=== PATIENT | female | born 1950 | race Caucasian/White ===

== ENCOUNTER 2019-04-24 05:54 | Day surgery (SDC) | payer MEDICARE, OTHER ==
--- NOTE | 2019-04-23 14:07 | PREOPHP ---
DATE OF ADMISSION: 04/24/2019 HISTORY OF PRESENT ILLNESS: This 69-year-old patient is admitted for elective cataract surgery of th e right eye. The patient has had decreased vision in both eyes for the past 6 months without prior h istory of eye disease or injury other than a dry eye condition. The patient's systemic history is po sitive for systemic hypertension, neuropathy and depression. CURRENT MEDICATIONS: Includes: 1. Tramadol. 2. Lexapro. 3. Amlodipine. 4. Gabapentin. ALLERGIES: ALLERGIC TO ASPIRIN. PHYSICAL EXAMINATION: Visual acuity with best correction is 20/40 in both eyes. Slit lamp examinati on reveals nuclear sclerotic cataracts in both eyes. Applanation tonometry is 19 mmHg. Examination of the retina is within normal limits. DIAGNOSIS: Nuclear sclerotic cataract, right eye. PLAN: Cataract extraction with lens implant, right eye. The risks and alternatives to the surgery h ave been discussed with the patient as well as the hope for improvement of visual acuity leading to g reater ability to perform activities of daily living. The patient understands this and agrees to pro ceed with surgery. Dictated By: CAMRON BASILIO/CRISSY Conf#: [id number] DID#: [id number]
[~2019-04-24] VITALS: Ht 157.5 cm; Wt 85.9 kg
[2019-04-24] VITALS (8 sets, daily range): BP systolic 119–145; BP diastolic 62–75; PULSE 58–64; RESP 16–20; Ht 157.5 cm; Wt 85.9 kg
[2019-04-24] MEDS ORDERED: CARBACHOL 0.01% 1.5 ML OPH INJ ONE (06:44)
[2019-04-24] MEDS ORDERED: TETRACAINE 0.5% 4 ML OPH ONE (06:44)
[2019-04-24] MEDS ORDERED: LIDOCAINE 4% (MPF) 5 ML INJ ONE (06:44)
[2019-04-24] MEDS ORDERED: CEFAZOLIN 1 GM INJ ONE (06:44)
[2019-04-24] MEDS ORDERED: GENTAMICIN 80 MG INJ ONE (06:45)
[2019-04-24] MEDS ORDERED: DEXAMETHASONE 4 MG/ML 1 ML INJ ONE (06:45)
[2019-04-24] MEDS ORDERED: EPINEPHrine 1 MG INJ ONE (06:45)
[2019-04-24] MEDS ORDERED: MOXIFLOXACIN 0.5% 3 ML OPH OPER SCH (07:00)
[2019-04-24] MEDS ORDERED: TROPICAMIDE 1% 15 ML OPH OPER SCH (07:00)
[2019-04-24] MEDS ORDERED: SOD CHLORIDE 0.9% 1,000 ML IV SCH (07:00)
[2019-04-24] MEDS ORDERED: DICLOFENAC 0.1% 2.5 ML OPH OPER SCH (07:00)
[2019-04-24] MEDS ORDERED: CYCLOPENTOLATE/PHENYLEPH 2 ML OPH OPER SCH (07:00)
[2019-04-24] MEDS ORDERED: CHOL100062 PO (07:15)
[2019-04-24] MEDS ORDERED: AMLO5TAB4 PO (07:15)
[2019-04-24] MEDS ORDERED: TRAM50TA2 PO (07:15)
--- NOTE | 2019-04-24 07:27 | PREAC ---
Date/Time of Note Date/Time of Note DATE: 04/24/19 TIME: 07:24 Anesthesia Eval and Record Evaluation Time Pre-Procedure Interview DATE: 04/24/19 TIME: 07:24 Age 69 Sex female NPO: 8 hrs Preoperative diagnosis Right Eye Cataract Planned procedure Right Eye Cataract Extraction and IOL implant Past Medical History Past Medical History: Includes Cardio: HTN, Dyslipidemia Surgery & Anesthesia Issues No known issue Meds Anticoagulation: No Beta Moriah within 24 hr: No Reason Beta Moriah not given: Pt. not on B-Moriah Reported Medications Cholecalciferol* (Vitamin D3*) 1,000 Unit Tablet, 2000 UNIT PO DAILY, TAB 04/24/19 Tramadol HCl (Tramadol HCl) 50 Mg Tablet, 50 MG PO Q8H PRN for PAIN LEVEL 4-6, #120 TAB 04/24/19 Amlodipine Besylate* (Norvasc*) 5 Mg Tablet, 5 MG PO DAILY, TAB 04/24/19 Current Medications Tropicamide (Mydriacyl 1%) 1 drop Q5 MIN X3 OPER Last administered on 04/24/19at 06:51; Admin Dose 1 DROP; Start 04/24/19 at 07:00 Moxifloxacin HCl (Vigamox) 1 drop Q5 MIN X 3 OPER Last administered on 04/24/19at 06:51; Admin Dose 1 DROP; Start 04/24/19 at 07:00 Cyclopentolate/ Phenylephrine (Cyclomydril Oph 2 ml) 1 drop Q5 MIN X 3 OPER Last administered on 04/24/19at 06:51; Admin Dose 1 DROP; Start 04/24/19 at 07:00 Sodium Chloride 1,000 ml @ 25 mls/hr Q24H IV Last administered on 04/24/19at 06:52; Admin Dose 25 MLS/HR; Start 04/24/19 at 07:00 Diclofenac Sodium (Voltaren 0.1%) 1 drop Q5 MIN X 3 OPER Last administered on 04/24/19at 06:51; Admin Dose 1 DROP; Start 04/24/19 at 07:00 Meds reviewed: Yes Allergies Coded Allergies: aspirin (Verified Allergy, Unknown, 04/23/19) Allergies Reviewed: Yes Labs/Studies Labs Reviewed: Reviewed by anesthesiologist test: N/A Studies: ECG (NSR), CXR (n/a) Pre-procedure Exam Last vitals Vital Signs Date Temp Pulse Resp B/P (MAP) Pulse Ox O2 O2 Flow FiO2 Time Delivery Rate 04/24/19 97.5 58 16 145/75 97 Room Air 07:07 (98) Airway: Adequate mouth opening, Adequate thyromental dist Mallampati: Mallampati II Teeth: Normal Lung: Normal Heart: Normal ASA Physical Status ASA physical status: 2 Emergency: None Planned Anesthetic General/MAC: MAC Planned Pain Management Parenteral pain med Pre-operative Attestations Prior to commencing anesthesia and surgery, the patient was re-evaluated, there was verification of: *The patient's identity *The results of appropriate recent lab work and preoperative vital signs *The above evaluation not changing prior to induction *Anesthetic plan, risk benefits, alternative and complications discussed with patient/family; questions answered; patient/family understands, accepts and wishes to proceed. EDER MOMIN MD Apr 24, 2019 07:27
[2019-04-24] MEDS ORDERED: ONDANSETRON 4 MG INJ IV PRN (07:30)
[2019-04-24] MEDS ORDERED: LABETALOL HCL 20MG INJ IV PRN (07:30)
[2019-04-24] MEDS ORDERED: HYDROmorphONE 1 MG/5 ML IV SYRINGE IV PRN (07:30)
[2019-04-24] MEDS ORDERED: hydrALAzine 20 MG INJ IV PRN (07:30)
[2019-04-24] MEDS ORDERED: FENTAnyl 50 MCG/ML VIAL IV PRN (07:30)
[2019-04-24] MEDS ORDERED: EPHEDrine 25 MG/5 ML SYG IV PRN (07:30)
[2019-04-24] MEDS ORDERED: METOCLOPRAMIDE 10 MG INJ IV PRN (07:30)
[2019-04-24] MEDS ORDERED: OXYCODONE/ACETAMINOPHEN (5/325) TAB PO PRN (07:30)
[2019-04-24] MEDS ORDERED: PROPOFOL 20 ML ONE (07:36)
[2019-04-24] MEDS ORDERED: MIDAZOLAM 1 MG/ML 2 ML INJ ONE (07:36)
[2019-04-24] MEDS ORDERED: METOCLOPRAMIDE 10 MG INJ ONE (07:53)
[2019-04-24] MEDS ORDERED: ONDANSETRON 4 MG INJ ONE (07:53)
[2019-04-24] MEDS ORDERED: NA HYALURONATE/CHONDROITIN 0.5 ML SYG OP ONE (07:58)
--- NOTE | 2019-04-24 08:16 | SIPON ---
Date/Time of Note Date/Time of Note DATE: 04/24/19 TIME: 08:15 Operative Report Preoperative Diagnosis nuclear sclerotic cataract od Postoperative Diagnosis same Operation/Procedure Performed cataract extraction with lens implant od Surgeon camron garcía data control assistant none Anesthesia: MAC Estimated blood loss: none Transfusion Required none Specimen none Grafts/Implants posterior chamber lens implant Complications none CAMRON GARCÍA MD Apr 24, 2019 08:16
--- NOTE | 2019-04-24 08:18 | PAC ---
Date/Time of Note Date/Time of Note DATE: 04/24/19 TIME: 08:18 Post-Anesthesia Notes Post-Anesthesia Note Last documented vital signs Vital Signs Date Temp Pulse Resp B/P (MAP) Pulse Ox O2 O2 Flow FiO2 Time Delivery Rate 04/24/19 97.5 58 16 145/75 97 Room Air 08:16 (98) Activity: WNL Respiratory function: WNL Cardiovascular function: WNL Mental status: Baseline Pain reasonably controlled: Yes Hydration appropriate: Yes Nausea/Vomiting absent: Yes EDER MOMIN MD Apr 24, 2019 08:18
--- NOTE | 2019-04-24 10:44 | OPR ---
DATE OF OPERATION: 04/24/2019 PREOPERATIVE DIAGNOSIS: Nuclear sclerotic cataract, right eye. POSTOPERATIVE DIAGNOSIS: Nuclear sclerotic cataract, right eye. OPERATION PERFORMED: Cataract extraction with lens implant, right eye. SURGEON: Camron Mackenzie MD ANESTHESIA: Naun Pedro MD OPERATION: Phacoemulsification with posterior chamber intraocular lens implant, right eye. PROCEDURE: The patient was brought to the operating room and placed on the table with an IV in place and the patient attached to an director part. Oxygen was given via face mask. After some intravenous sedation was administered, local anesthesia was given using Xylocaine 2% with epinephrine, mixed with Marcaine 0.5%. This was given in a lid block and retrobulbar injection. The p atient was then prepped and draped in the usual sterile manner. A wire lid speculum was inserted between the lids of the right eye. A Superblade was used to enter th e anterior chamber at the corneoscleral limbus at the 10:30 o'clock position. A separate incision was made using a 3.0-mm keratome which entered the corneoscleral junction at the 12 o'clock position. Th rough this 3-mm opening, an irrigating cystotome was introduced into the anterior chamber. The chambe r was filled with Viscoat and an anterior capsulotomy was performed. Balanced salt solution was then used for hydrodissection of the lens. A phacoemulsification handpiece was then brought into the fiel d and introduced into the anterior chamber. The lens nucleus was emulsified using a deep groove and c racking the nucleus into quadrants. Following this, each quadrant was aspirated and emulsified at the pupillary margin. After this was completed, the irrigation/aspiration handpiece was brought to the field, introduced in to the posterior chamber, and the lens cortical material was removed. When this was completed, additi onal Viscoat was injected into the anterior and posterior chambers. The 3-mm opening had its internal lips enlarged, and then the posterior chamber intraocular lens abelino uring 20.0 diopters ([employer] Model LI61AO) was then injected into the posterior c hamber using the lens injector system. After the leading haptic was introduced into the capsular bag and the lens optic was present in the center of the eye, the injector was removed and the trailing diamond ptic was grasped with non-toothed forceps and introduced into the capsular fold superiorly. A Sinskey hook was then used to rotate the intraocular lens so that the lips were oriented in the horizontal m eridian. One 10-0 nylon suture was placed across the wound. Prior to tying, the irrigation/aspiration handpiece was reintroduced into the anterior chamber to rem ove the Viscoat. Miochol was instilled to constrict the pupil, and then the 10-0 nylon suture was tie d. The ends were cut short and then the knot was buried. Then, 0.5 mL of dexamethasone and 0.5 mL of Ancef were injected into the sub-Tenon space in the infer ior fornix. Ciloxan drops were then placed on the surface of the eye. The speculum was removed and a patch was applied. The patient then left the operating room in satisfactory condition. Dictated By: CAMRON BASILIO/CRISSY Conf#: [id number] DID#: [id number]
== END 2019-04-24 09:09 | disposition home or self-care (01) ==
LOC: SDS 05:54
PROVIDERS: ATTEND Ophthalmology
DX: H25.11 Age-related nuclear cataract, right eye (principal); I10 Essential (primary) hypertension; E78.2 Mixed hyperlipidemia; F41.9 Anxiety disorder, unspecified
CPT/HCPCS: 66984; J0171; J0690; J1100; J1580; J2250; J2405; J2765; V2632